=== PATIENT | female | born 2005 | race Hispanic/Latino ===

== ENCOUNTER 2025-05-07 13:11 | Emergency (ER) | payer SELFPAY ==
[2025-05-07 13:21] VITALS: BP 101/60; PULSE 85; RESP 17; TEMP 36.5; O2SAT 100
--- NOTE | 2025-05-07 14:22 | PC.NURSE ---
Patient came to triage desk with her phone supervisor laboratory asking if she could just come back tomorrow that she left her baby at home and she needed to leave for them.
== END 2025-05-07 17:56 | disposition left against medical advice (07) ==
DX: Z33.2 Encounter for elective termination of pregnancy (principal)
CPT/HCPCS: 99199